=== PATIENT | female | born 1930 | race Caucasian/White ===

== ENCOUNTER 2016-12-09 06:43 | Day surgery (SDC) | payer MEDICARE, OTHER ==
[2016-12-09] MEDS ORDERED: Propofol 200 MG/20 ML SDV IV ONE (06:44)
[2016-12-09] MEDS ORDERED: Lactated Ringers 1,000 ML IV SCH (06:45)
[2016-12-09] MEDS ORDERED: Sodium Chloride 0.9% 10 ML Syringe FLUSH PRN (06:45)
--- NOTE | 2016-12-09 08:31 | PCM.OPNOTE ---
- General Post-Op/Procedure Note Date of Surgery/Procedure: 12/09/16 Operative Procedure(s): c scope with bx Findings: diverticulosis nl colonic mucosa Pre Op Diagnosis: change in bowel habits Post-Op Diagnosis: diverticulosis. nl colonic mucosa Anesthesia Technique: MAC Primary Surgeon: Feliz Scherer Anesthesia Provider: Gilma Jalloh Pathology: random colon biopsy Complications: None Condition: Good Free Text/Narrative:: see dictation [id number]
[2016-12-09 10:11] VITALS: BP 155/74
--- NOTE | 2016-12-09 10:41 | OR ---
DATE OF OPERATION: 12/09/2016 SURGEON: Feliz Scherer MD PROCEDURE PERFORMED: Colonoscopy with random colon biopsies. PREOPERATIVE DIAGNOSIS: Change in bowel habits. POSTOPERATIVE DIAGNOSIS: Diverticulosis, normal-appearing colonic mucosa. INDICATIONS FOR PROCEDURE: This is an 86-year-old white female who is referred with a one-month change in bowel habits. She has had increasing loose stools that have not responded to conservative therapy. She was offered and accepted colonoscopy. DESCRIPTION OF PROCEDURE: After an excellent IV sedation was administered, digital rectal exam was performed. No marked abnormality was noted. The flexible colonoscope was inserted and advanced to the cecum without difficulty. The following findings were noted. Ascending colon, unremarkable, random biopsies taken. Transverse colon, unremarkable, random biopsies were taken. Descending colon, scattered diverticula, random biopsies were taken. Sigmoid, moderate diverticulosis, random biopsies were taken. Rectum unremarkable. Colon was deflated after rectal biopsies were taken. She tolerated the procedure well, taken to recovery in good condition. /[id number] /MODL
== END 2016-12-09 09:44 | disposition home or self-care (01) ==
LOC: FB.SDS 06:43
PROVIDERS: ATTEND Surgery
DX: K57.30 Diverticulosis of large intestine without perforation or abscess without bleeding (principal); I10 Essential (primary) hypertension; K21.9 Gastro-esophageal reflux disease without esophagitis; Z88.8 Allergy status to other drugs, medicaments and biological substances; Z79.01 Long term (current) use of anticoagulants; Z79.899 Other long term (current) drug therapy; Z98.890 Other specified postprocedural states; Z87.891 Personal history of nicotine dependence
CPT/HCPCS: 00810; 45380; 88305; J2704; J7120

== ENCOUNTER 2018-04-02 20:02 | Emergency (ER) | payer MEDICARE, OTHER ==
[2018-04-02] MEDS ORDERED: cloNIDine 0.1 MG Tab PO ONE (20:29)
--- NOTE | 2018-04-02 21:11 | EDM.PDOC ---
ED HPI GENERAL MEDICAL PROBLEM - General Chief Complaint: Eye Problems Stated Complaint: EYE PROBLEM Time Seen by Provider: 04/02/18 20:45 Source of Information: Reports: Patient History Limitations: Reports: No Limitations - History of Present Illness INITIAL COMMENTS - FREE TEXT/NARRATIVE: Ronna complaints of right eye pain. She had injection for macular degeneration today, and started complaining afterwards of right eye pain that is moderate to severe. She denies any nausea or vomiting or headache. She does have a history of hypertension, and at the walk-in clinic was most of her blood pressure more than 200 systolic. She denies chest pain or shortness of breath. right eye Pain Score (Numeric/FACES): 8 - Related Data Allergies Allergy/AdvReac Type Severity Reaction Status Date / Time codeine AdvReac Nausea and Verified 04/02/18 20:19 Vomiting Home Meds: Home Meds Calcium Carbonate/Vitamin D3 [Caltrate 600 Plus D3 Tablet] 1 tab PO BID [History] Carboxymethylcellulose Sodium [Thera Tears] 1 applic EYEBOTH ASDIRECTED [History] Flecainide [Tambocor] 100 mg PO BID 10/27/13 [History] Fluticasone Propionate [Flonase] 1 spray CLEMENTINE BID PRN 10/27/13 [History] Glucosamine [Glucosamine Sulfate] 2 cap PO DAILY 10/27/13 [History] Hydrochlorothiazide 25 mg PO DAILY 10/27/13 [History] Metoprolol Succinate [Toprol XL] 25 mg PO DAILY 10/27/13 [History] Omeprazole 20 mg PO DAILY 10/27/13 [History] Valsartan [Diovan] 320 mg PO DAILY 10/27/13 [History] Carbidopa/Levodopa [Carbidopa-Levo 25-100 MG ODT] 1 each PO ASDIRECTED 12/08/16 [History] Cholecalciferol (Vitamin D3) [Vitamin D3] 2,000 unit PO DAILY 12/08/16 [History] Vit C/Vit E Ac/Lut/Mineral 1 [Prosight with Lutein] 1 each PO DAILY 12/08/16 [ History] Warfarin [Coumadin] 5 mg PO ASDIRECTED 12/08/16 [History] cycloSPORINE [Restasis] 1 drop EYEBOTH BID 12/08/16 [History] Past Medical History HEENT History: Reports: Cataract, Hard of Hearing, Impaired Vision, Macular Degeneration Cardiovascular History: Reports: Afib, Arrhythmia, Hypertension Gastrointestinal History: Reports: GERD, Hiatal Hernia, Other (See Below) Other Gastrointestinal History: FERNANDEZ'S ESOPHAGUS, DIAPHRAGMATIC HERNIA Musculoskeletal History: Reports: Arthritis Other Musculoskeletal History: LUMBAR SPONDYLOSIS Psychiatric History: Reports: Anxiety Oncologic (Cancer) History: Reports: Squamous Cell Carcinoma Dermatologic History: Reports: Other (See Below) Other Dermatologic History: ACTINIC KERATOSIS, SQUAMOUS CELL CARCINOMA - Past Surgical History HEENT Surgical History: Reports: Other (See Below) Other HEENT Surgeries/Procedures: INTRAVITREAL INJECTIONS Cardiovascular Surgical History: Reports: Cardiac Ablation GI Surgical History: Reports: Colonoscopy, EGD Musculoskeletal Surgical History: Reports: Carpal Tunnel, ORIF Social & Family History - Family History Family Medical History: Noncontributory - Tobacco Use Smoking Status *Q: Never Smoker - Caffeine Use Caffeine Use: Reports: Coffee - Recreational Drug Use Recreational Drug Use: No ED ROS GENERAL - Review of Systems Review Of Systems: ROS reveals no pertinent complaints other than HPI. ED EXAM GENERAL W FULL EYE - Physical Exam Exam: See Below Exam Limited By: No Limitations General Appearance: Alert Eye Exam: Right Eye: Conjunctival Injection, Corneal Abrasion, Bilateral Eye: PERRL Conjunctiva & Sclera: Right: Injected Cornea Exam: Right: Corneal Abrasion Extraocular Movements: Bilateral: Intact Pupils: Normal Accommodation Ears: Normal External Exam Nose: Normal Inspection Throat/Mouth: Normal Inspection Neck: Normal Inspection Respiratory/Chest: No Respiratory Distress Cardiovascular: Normal Peripheral Pulses, Regular Rate, Rhythm Course - Vital Signs Last Recorded V/S: Last Vital Signs Temp 97.5 F 04/02/18 20:02 Pulse 73 04/02/18 20:02 Resp 18 04/02/18 20:02 BP 193/74 H 04/02/18 20:33 Pulse Ox 98 04/02/18 20:02 - Orders/Labs/Meds Meds: Medications Discontinued Medications Generic Name Dose Route Start Last Admin Trade Name Freq PRN Reason Stop Dose Admin Clonidine HCl 0.1 mg 04/02/18 20:29 04/02/18 20:33 Catapres PO 04/02/18 20:30 0.1 mg ONETIME ONE Administration Departure - Departure Time of Disposition: 21:09 Disposition: Home, Self-Care 01 Condition: Fair Clinical Impression: Corneal abrasion - Discharge Information Referrals: Char Stanford NP [Primary Care Provider] - - Problem List & Annotations (1) HTN (hypertension) SNOMED Code(s): 06919300 Code(s): I10 - ESSENTIAL (PRIMARY) HYPERTENSION Status: Acute Current Visit: Yes Qualifiers: Hypertension type: essential hypertension Qualified Code(s): I10 - Essential (primary) hypertension (2) Macular degeneration SNOMED Code(s): 464452533 Code(s): H35.30 - UNSPECIFIED MACULAR DEGENERATION Status: Acute Current Visit: Yes (3) Corneal abrasion SNOMED Code(s): 69384162 Code(s): S05.00XA - INJ CONJUNCTIVA AND CORNEAL ABRASION W/O FB, UNSP EYE, INIT Status: Acute Current Visit: Yes - Problem List Review Problem List Initiated/Reviewed/Updated: Yes - Assessment/Plan Plan: I called to ophthalmology, Dr. Ledbetter recommended that an antibiotic and patch, supposing that is likely corneal abrasion. She was given 1 dose of clonidine, blood pressure still remained 193 systolic, she will see Yulissa De Jesus Thursday
[2018-04-02 21:16] VITALS: BP 181/78
== END 2018-04-02 21:15 | disposition home or self-care (01) ==
LOC: FB.ED 20:02
DX: S05.01XA Injury of conjunctiva and corneal abrasion without foreign body, right eye, initial encounter (principal); H35.30 Unspecified macular degeneration; I48.91 Unspecified atrial fibrillation; I10 Essential (primary) hypertension; K21.9 Gastro-esophageal reflux disease without esophagitis; F41.9 Anxiety disorder, unspecified; Z88.5 Allergy status to narcotic agent; Z79.899 Other long term (current) drug therapy
CPT/HCPCS: 99283; A9270-GY

== ENCOUNTER 2019-11-22 05:06 | Emergency (ER) | payer MEDICARE, OTHER ==
[2019-11-22] MEDS ORDERED: Sodium Chloride 0.9% 1,000 ML IV ONE (05:18)
[2019-11-22] MEDS ORDERED: Diltiazem 25 MG/5 ML SDV ONE (05:18)
[2019-11-22] MEDS ORDERED: Diltiazem 25 MG/5 ML SDV IVPUSH ONE (05:19)
[2019-11-22] MEDS ORDERED: Labetalol 20 MG/4 ML Syringe IVPUSH ONE ×3 (05:26→06:39)
[2019-11-22 06:57] VITALS: BP 146/77; PULSE 69
--- NOTE | 2019-11-22 07:04 | EDM.PDOC ---
ED HPI GENERAL MEDICAL PROBLEM - General Chief Complaint: Cardiovascular Problem Stated Complaint: HEART Time Seen by Provider: 11/22/19 05:25 Source of Information: Reports: Patient History Limitations: Reports: No Limitations - History of Present Illness INITIAL COMMENTS - FREE TEXT/NARRATIVE: Patient presented to the ED because of palpitations which started at about 0400 while patient was in the bathroom. She denies any dizziness, chest pain, N/V, dyspnea or syncopal episode. She has a history of Afib and is taking flecainide & metoprolol. - Related Data Allergies Allergy/AdvReac Type Severity Reaction Status Date / Time codeine AdvReac Nausea and Verified 11/22/19 06:04 Vomiting Home Meds: Home Meds Calcium Carbonate/Vitamin D3 [Caltrate 600 Plus D3 Tablet] 1 tab PO BID 10/27/13 [History] Flecainide [Tambocor] 150 mg PO BID 10/27/13 [History] Metoprolol Succinate [Toprol XL] 12.5 mg PO DAILY 10/27/13 [History] Carbidopa/Levodopa [Carbidopa-Levo 25-100 MG ODT] 1 each PO ASDIRECTED 12/08/16 [History] Cholecalciferol (Vitamin D3) [Vitamin D3] 2,000 unit PO DAILY 12/08/16 [History] Vit C/Vit E/Lutein/Minerals 1 [Prosight with Lutein] 1 each PO DAILY 12/08/16 [History] Warfarin [Coumadin] 5 mg PO DAILY 12/08/16 [History] Famotidine 20 mg PO BEDTIME 11/22/19 [History] Valsartan/Hydrochlorothiazide [Valsartan-Hctz 320-25 mg Tab] 1 each PO DAILY 11/22/19 [History] Warfarin [Coumadin] 7.5 mg PO MO 11/22/19 [History] Past Medical History HEENT History: Reports: Cataract, Hard of Hearing, Impaired Vision, Macular Degeneration Cardiovascular History: Reports: Afib, Arrhythmia, Hypertension Gastrointestinal History: Reports: GERD, Hiatal Hernia, Other (See Below) Other Gastrointestinal History: FERNANDEZ'S ESOPHAGUS, DIAPHRAGMATIC HERNIA Musculoskeletal History: Reports: Arthritis Other Musculoskeletal History: LUMBAR SPONDYLOSIS Psychiatric History: Reports: Anxiety Oncologic (Cancer) History: Reports: Squamous Cell Carcinoma Dermatologic History: Reports: Other (See Below) Other Dermatologic History: ACTINIC KERATOSIS, SQUAMOUS CELL CARCINOMA - Past Surgical History HEENT Surgical History: Reports: Other (See Below) Other HEENT Surgeries/Procedures: INTRAVITREAL INJECTIONS Cardiovascular Surgical History: Reports: Cardiac Ablation GI Surgical History: Reports: Colonoscopy, EGD Musculoskeletal Surgical History: Reports: Carpal Tunnel, ORIF Social & Family History - Family History Family Medical History: Noncontributory - Tobacco Use Smoking Status *Q: Former Smoker Used Tobacco, but Quit: Yes Month/Year Tobacco Last Used: 1959 - Caffeine Use Caffeine Use: Reports: Coffee ED ROS GENERAL - Review of Systems Review Of Systems: See Below Constitutional: Reports: No Symptoms HEENT: Reports: No Symptoms, Vertigo Respiratory: Reports: No Symptoms Cardiovascular: Reports: Palpitations GI/Abdominal: Reports: No Symptoms : Reports: No Symptoms Musculoskeletal: Reports: No Symptoms Skin: Reports: No Symptoms Neurological: Reports: No Symptoms ED EXAM, GENERAL - Physical Exam Exam: See Below Exam Limited By: No Limitations General Appearance: Alert, No Apparent Distress Eye Exam: Bilateral Eye: PERRL Ears: Normal External Exam, Normal Canal Nose: Normal Inspection, Normal Mucosa Throat/Mouth: Normal Inspection, Normal Lips, Normal Teeth, Normal Gums Head: Atraumatic, Normocephalic Neck: Normal Inspection, Supple, Non-Tender, Full Range of Motion Respiratory/Chest: No Respiratory Distress, Lungs Clear, Normal Breath Sounds Cardiovascular: Normal Peripheral Pulses, Regular Rate, Rhythm, No Edema, No Gallop, No JVD, No Murmur GI/Abdominal: Normal Bowel Sounds, Soft, Non-Tender, No Organomegaly Back Exam: Normal Inspection, Full Range of Motion Extremities: Normal Inspection, Normal Range of Motion, Non-Tender Neurological: Alert, Oriented, CN II-XII Intact, Normal Cognition, Normal Gait Skin Exam: Warm, Dry, Intact, Normal Color Course - Vital Signs Text/Narrative:: Labs/EKG was discussed with patient and her daughter and verbalized full understanding Labetalol 20 mg IV x2 doses for her hypertensive crisis EKG-AFIB with RVR Last Recorded V/S: Last Vital Signs Temp 36.4 C 11/22/19 06:57 Pulse 69 11/22/19 06:57 Resp 20 11/22/19 06:57 BP 146/77 H 11/22/19 06:57 Pulse Ox 95 11/22/19 06:57 - Orders/Labs/Meds Orders: Active Orders 24 hr Category Date Time Status EKG 12 Lead [EK] Routine Ther 11/22/19 05:19 Ordered EKG 12 Lead [EK] Routine Ther 11/22/19 05:31 Ordered Labs: Laboratory Tests 11/22/19 11/22/19 11/22/19 Range/Units 05:30 05:30 05:30 WBC 6.6 (4.5-12.0) X10-3/uL RBC 4.71 (3.23-5.20) x10(6)uL Hgb 14.1 (11.5-15.5) g/dL Hct 43.6 (30.0-51.3) % MCV 92.4 (80-96) fL MCH 30.0 (27.7-33.6) pg MCHC 32.4 (32.2-35.4) g/dL RDW 12.7 (11.5-15.5) % Plt Count 276 (125-369) X10(3)uL MPV 7.0 L (7.4-10.4) fL Neut % (Auto) 63.3 (46-82) % Lymph % (Auto) 21.1 (13-37) % Moore % (Auto) 11.7 (4-12) % Eos % (Auto) 3 (1.0-5.0) % Baso % (Auto) 1 (0-2) % Neut # (Auto) 4.1 (1.6-8.3) # Lymph # (Auto) 1.4 (0.6-5.0) # Moore # (Auto) 0.8 (0.0-1.3) # Eos # (Auto) 0.2 (0.0-0.8) # Baso # (Auto) 0.1 (0.0-0.2) # PT 22.6 H (9.0-11.1) sec INR 2.20 H (1.00-1.24) APTT 34.5 H (24.4-33.2) SECONDS Sodium 136 (135-145) mmol/L Potassium 4.0 (3.5-5.3) mmol/L Chloride 101 (100-110) mmol/L Carbon Dioxide 29 (21-32) mmol/L BUN 19 H (7-18) mg/dL Creatinine 1.2 H (0.55-1.02) mg/dL Est Cr Clr Drug Dosing 30.92 mL/min Estimated GFR (MDRD) 42 L (>60) BUN/Creatinine Ratio 15.8 (9-20) Glucose 114 (80-116) mg/dL Calcium 9.5 (8.6-10.2) mg/dL Total Bilirubin 0.6 (0.1-1.3) mg/dL AST 20 (5-25) IU/L ALT 11 L (12-36) U/L Alkaline Phosphatase 84 (56-112) IU/L Troponin I (4.0-60.3) pg/mL Total Protein 6.8 (6.0-8.0) g/dL Albumin 3.5 (3.2-4.6) g/dL Globulin 3.3 g/dL Albumin/Globulin Ratio 1.1 11/22/19 Range/Units 05:30 WBC (4.5-12.0) X10-3/uL RBC (3.23-5.20) x10(6)uL Hgb (11.5-15.5) g/dL Hct (30.0-51.3) % MCV (80-96) fL MCH (27.7-33.6) pg MCHC (32.2-35.4) g/dL RDW (11.5-15.5) % Plt Count (125-369) X10(3)uL MPV (7.4-10.4) fL Neut % (Auto) (46-82) % Lymph % (Auto) (13-37) % Moore % (Auto) (4-12) % Eos % (Auto) (1.0-5.0) % Baso % (Auto) (0-2) % Neut # (Auto) (1.6-8.3) # Lymph # (Auto) (0.6-5.0) # Moore # (Auto) (0.0-1.3) # Eos # (Auto) (0.0-0.8) # Baso # (Auto) (0.0-0.2) # PT (9.0-11.1) sec INR (1.00-1.24) APTT (24.4-33.2) SECONDS Sodium (135-145) mmol/L Potassium (3.5-5.3) mmol/L Chloride (100-110) mmol/L Carbon Dioxide (21-32) mmol/L BUN (7-18) mg/dL Creatinine (0.55-1.02) mg/dL Est Cr Clr Drug Dosing mL/min Estimated GFR (MDRD) (>60) BUN/Creatinine Ratio (9-20) Glucose (80-116) mg/dL Calcium (8.6-10.2) mg/dL Total Bilirubin (0.1-1.3) mg/dL AST (5-25) IU/L ALT (12-36) U/L Alkaline Phosphatase (56-112) IU/L Troponin I 27.0 (4.0-60.3) pg/mL Total Protein (6.0-8.0) g/dL Albumin (3.2-4.6) g/dL Globulin g/dL Albumin/Globulin Ratio Meds: Medications Discontinued Medications Generic Name Dose Route Start Last Admin Trade Name Freq PRN Reason Stop Dose Admin Diltiazem HCl 15 mg 11/22/19 05:19 11/22/19 06:52 Diltiazem IVPUSH 11/22/19 05:20 Not Given ONETIME ONE Diltiazem HCl Confirm 11/22/19 05:18 11/22/19 05:22 Diltiazem Administered 11/22/19 05:19 Not Given Dose 25 mg .ROUTE .STK-MED ONE Sodium Chloride 1,000 mls @ 999 mls/hr 11/22/19 05:18 11/22/19 07:21 Normal Saline IV 11/22/19 06:18 Not Given .BOLUS ONE Labetalol HCl 20 mg 11/22/19 05:26 11/22/19 05:30 Normodyne IVPUSH 11/22/19 05:27 20 mg ONETIME ONE Administration Protocol Labetalol HCl 20 mg 11/22/19 06:39 11/22/19 06:42 Normodyne IVPUSH 11/22/19 06:40 20 mg ONETIME ONE Administration Protocol Labetalol HCl 20 mg 11/22/19 06:39 11/22/19 06:52 Normodyne IVPUSH 11/22/19 06:40 Not Given ONETIME ONE Protocol Departure - Departure Time of Disposition: 07:00 Disposition: Home, Self-Care 01 Condition: Good Clinical Impression: Hypertensive crisis, Afib Instructions: Atrial Fibrillation, [id number], Hypertension, Adult Referrals: Char Stanford NP [Primary Care Provider] - Forms: ED Department Discharge Additional Instructions: Please read discharge instructions on Hypertensive crisis and AFIB Rest for the day Take your Valsartan/HCTZ and metoprolol as soon as you get home Follow up with 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 ) this week Sepsis Event Note (ED) - Evaluation Sepsis Screening Result: No Definite Risk - Focused Exam Vital Signs: Vital Signs Temp Pulse Resp BP Pulse Ox 11/22/19 06:57 36.4 C 69 20 146/77 H 95 11/22/19 06:50 68 153/60 H 11/22/19 06:46 69 169/66 H 11/22/19 06:45 68 174/81 H 11/22/19 06:44 69 178/80 H 11/22/19 06:43 70 183/79 H 11/22/19 06:42 69 189/80 H 11/22/19 05:34 66 145/74 H 11/22/19 05:33 69 156/76 H 11/22/19 05:32 69 156/69 H 11/22/19 05:31 66 170/70 H 11/22/19 05:30 67 199/88 H 11/22/19 05:06 36.1 C 132 H 20 209/102 H 95 - My Orders Last 24 Hours: My Active Orders 11/22/19 05:19 EKG 12 Lead [EK] Routine 11/22/19 05:31 EKG 12 Lead [EK] Routine - Assessment/Plan Last 24 Hours: My Active Orders 11/22/19 05:19 EKG 12 Lead [EK] Routine 11/22/19 05:31 EKG 12 Lead [EK] Routine
== END 2019-11-22 07:19 | disposition home or self-care (01) ==
LOC: FB.ED 05:06
DX: I16.9 Hypertensive crisis, unspecified (principal); I48.91 Unspecified atrial fibrillation; Z88.5 Allergy status to narcotic agent; Z79.899 Other long term (current) drug therapy; Z79.01 Long term (current) use of anticoagulants; Z87.891 Personal history of nicotine dependence
CPT/HCPCS: 36415; 80053; 84484; 85025; 85610; 85730; 93005; 96374; 96376; 99285; J3490; 99283

== ENCOUNTER 2022-03-20 18:39 | Emergency (ER) | payer MEDICARE, OTHER ==
[2022-03-20 18:46] VITALS: PULSE 66
[2022-03-20 20:31] VITALS: BP 170/80
== END 2022-03-20 20:23 | disposition home or self-care (01) ==
LOC: FB.ED 18:39
DX: S05.01XA Injury of conjunctiva and corneal abrasion without foreign body, right eye, initial encounter (principal); S05.02XA Injury of conjunctiva and corneal abrasion without foreign body, left eye, initial encounter; I48.91 Unspecified atrial fibrillation; I10 Essential (primary) hypertension; K21.9 Gastro-esophageal reflux disease without esophagitis; M19.90 Unspecified osteoarthritis, unspecified site; Z88.5 Allergy status to narcotic agent; Z79.899 Other long term (current) drug therapy; Z79.01 Long term (current) use of anticoagulants
CPT/HCPCS: 99283